=== PATIENT | female | born 1995 | race African-American/Black ===

== ENCOUNTER 2017-08-09 13:57 | Inpatient (IN) | payer MEDICAID ==
[~2017-08-09] VITALS: Ht 165.1 cm; Wt 70.0 kg
[2017-08-09] VITALS (105 sets, daily range): BP systolic 110–136; BP diastolic 62–75; PULSE 78–95; RESP 16–18; TEMP 97.9–98.3; O2SAT 99–100
--- NOTE | 2017-08-09 14:51 | PD ---
HPI Chief Complaint vaginal spotting Date Seen: Aug 09, 2017 Time Seen: 14:47 (Buster Ramirez MD, R2) Travel History International Travel<30 Days: No Contact w/Intl Traveler<30Days: No (Buster Ramirez MD, R2) History of Present Illness HPI Ms. Bradshaw is a 22 y/o -[place] female at 30/6 weeks who presents to the ED for vaginal spotting. She reports that today she had pink tinge after wiping after urinating. Denies any bright red blood. No gush of fluids. Endorses occasional Upton-tenorio contractions. Good movement. 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 States she has moved permanently here and needs to get set up with a new provider. Denies any problems with this . States she had an ultrasound performed early on in that was normal per pt. No problems with her previous . Also complaining of abdominal pain off and on for the last few weeks. The pain is mostly in her bilateral groin areas. Did have sexual intercourse in the last 24 hours. Otherwise, denies any other symptoms. No headache, changes in vision, dysuria, chest pain, SOB, leg pain, leg edema. Weeks Gestation: 30 Para: 1 : 2 (Buster Ramirez MD, R2) History Past Medical History Medical History: Denies Significant Hx (Buster Ramirez MD, R2) Obstetric History Obstetric History 1st : at term (Buster Ramirez MD, R2) Past Surgical History Surgical History: No Previous Surgery (Buster Ramirez MD, R2) Family History Family History: Negative (Buster Ramirez MD, R2) Social History Alcohol Use: No Tobacco Use: No Substance Abuse: No (Buster Ramirez MD, R2) Allergies-Medications (Allergen,Severity, Reaction): Coded Allergies: No Known Allergies (Unverified , 08/09/17) Home Meds Reported Medications Multivit-Min W/Fe-FA ( Vitamins 0.8 mg) 1 Tab Tab 08/09/17 Review of Systems General / Constitutional: Weight Gain, No: Fever, Weight Loss, Chills Eyes: No: Diploplia, Blurred Vision HENT: No: Headaches, Vertigo Cardiovascular: No: Irregular Rhythm, Chest Pain or Discomfort, Palpitations Respiratory: No: Cough, Short of Breath Gastrointestinal: No: Nausea, Vomiting, Diarrhea Genitourinary: Pelvic Pain, Vaginal Bleeding, No: Urgency, Frequency, Dysuria, Discharge Musculoskeletal: No: Limited ROM, Weakness Skin: No Rash, No Itching, No Dryness, No Lumps Neurologic: No: Weakness, Dizziness, Syncope Psychiatric: No: Anxiety, Depression, Suicidal Ideations Endocrine: No: Heat Intolerance, Cold Intolerance (Buster Ramirez MD, R2) Physical Exam Narrative GENERAL: Well-nourished, well-developed patient. SKIN: Warm and dry. HEAD: Normocephalic and atraumatic. EYES: No scleral icterus. No injection or drainage. ENT: No nasal drainage noted. Mucous membranes pink. Airway patent. NECK: Supple, trachea midline. No JVD. CARDIOVASCULAR: Regular rate and rhythm without murmurs, gallops, or rubs. RESPIRATORY: Breath sounds equal bilaterally. No accessory muscle use. ABDOMEN/GI: Abdomen soft, non-tender, bowel sounds present, no rebound, no guarding Gravid to 30 weeks size GENITOURINARY: External Genitalia: intact and normal in appearance Cervix: posterior Dilatation: 2 Effacement: 50 Station: -3 Presentation: unsure Membranes: intact Uterine Contractions: q3-5 minutes FHT's: Category: 1 Baseline: 140 Reactive: yes Variability: moderate Decels: occasional variable EXTREMITIES: No cyanosis or edema. BACK: Nontender without obvious deformity. No CVA tenderness. NEUROLOGICAL: Awake and alert. Motor and sensory grossly within normal limits. Five out of 5 muscle strength in all muscle groups. Normal speech. (Buster Ramirez MD, R2) Data Data Vital Signs Reviewed: Yes (Buster Ramirez MD, R2) [facility] Medical Record Reviewed: Yes Interpretation(s) 22 y/o at 30? weeks gestation presents for vaginal spotting. Category 1 FHT with contractions every 3-5 minutes Speculum exam: no shara blood. No signs of cervicitis Cervical exam: /-3. Amniotic membrane appreciated, no presenting part -Admit to inpatient for workup -1L LR bolus -Start steroids for lung maturity -Start IV Mg for neuroprotection -Ultrasound to evaluate fetus and cervical length -UA, UDS -CBC, CMP, type and screen -GC/CH, rapid GBS -Obtain records (Buster Ramirez MD, R2) Attending Attestation 30 weeks No records at this time, requested from [facility] Intermittent abdominal pain for one week and spotting after intercourse today. SSE with no active bleeding noted. SVE with 2cm dilation, stretchy and no presenting part palpated Irregular UC. Admit for PTL US pending Magnesium sulfate for neuroprotection B-Methasone course initiated UTI on UA, will give Ancef Cervical cultures, GBS pending (Cyndie Price MD) Buster Ramirez MD, R2 Aug 09, 2017 14:51 Cyndie Price MD Aug 09, 2017 20:14
[2017-08-09] MEDS ORDERED: MAGNESIUM SULFATE 40 GM PREMIX 1,000 ML IV SCH (14:57)
[2017-08-09] MEDS ORDERED: BETAMETHASONE SOD PHOS/ACETATE SUSP 30 MG/5 ML VIAL IM SCH (15:00)
[2017-08-09] MEDS ORDERED: ZOLPIDEM TARTRATE 5 MG TAB PO PRN (15:00)
[2017-08-09] MEDS ORDERED: ALUMINUM/MAGNESIUM/SIMETH 30 ML CUP PO PRN (15:00)
[2017-08-09] MEDS ORDERED: SODIUM CHLORIDE 0.9% FLUSH 10 ML FLUSH IV FLUSH PRN (15:00)
[2017-08-09] MEDS ORDERED: MAGNESIUM SULFATE 4 GM PREMIX 100 ML IV ONE (15:00)
[2017-08-09] MEDS ORDERED: LACTATED RINGER'S 1000 ML INJ 1,000 ML IV ONE (15:00)
[2017-08-09] MEDS ORDERED: ACETAMINOPHEN 325 MG TAB PO PRN (15:00)
[2017-08-09] MEDS ORDERED: PREN1TAB63 (15:30)
[2017-08-09] MEDS: BETAMETHASONE SOD PHOS/ACETATE SUSP 30 MG/5 ML VIAL IM SCH (15:43)
[2017-08-09] MEDS ORDERED: ONDANSETRON HCL 4 MG/2 ML VIAL IV PUSH ONE (16:00)
[2017-08-09] MEDS ORDERED: LIDOCAINE 2% JELLY 30 ML TUBE ONE (16:10)
[2017-08-09] MEDS: SODIUM CHLORIDE 0.9% FLUSH 10 ML FLUSH IV FLUSH SCH (16:12)
[2017-08-09] MEDS ORDERED: LIDOCAINE 2% JELLY 30 ML TUBE TOPICAL ONE (16:15)
--- NOTE | 2017-08-09 16:48 | HHI.HP ---
History & Physical H&P HPI Chief Complaint vaginal spotting Date Seen: Aug 09, 2017 Time Seen: 14:47 Travel History International Travel<30 Days: No Contact w/Intl Traveler<30Days: No History of Present Illness HPI Ms. Bradshaw is a 22 y/o -[place] female at 30/6 weeks who presents to the ED for vaginal spotting. She reports that today she had pink tinge after wiping after urinating. Denies any bright red blood. No gush of fluids. Endorses occasional Kendall-tenorio contractions. Good movement. Pt just moved from another [facility] and was seeing a shoe laster there. States she has moved permanently here and needs to get set up with a new provider. Denies any problems with this . States she had an ultrasound performed early on in that was normal per pt. No problems with her previous . Also complaining of abdominal pain off and on for the last few weeks. The pain is mostly in her bilateral groin areas. Did have sexual intercourse in the last 24 hours. Otherwise, denies any other symptoms. No headache, changes in vision, dysuria, chest pain, SOB, leg pain, leg edema. Weeks Gestation: 30 Para: 1 : 2 History (Limited) History Past Medical History Medical History: Denies Significant Hx Obstetric History Obstetric History 1st : at term Past Surgical History Surgical History: No Previous Surgery Family History Family History: Negative Social History Alcohol Use: No Tobacco Use: No Substance Abuse: No Allergies-Medications Allergies-Medications (Allergen,Severity, Reaction): Coded Allergies: No Known Allergies (Unverified , 08/09/17) Home Meds Reported Medications Multivit-Min W/Fe-FA ( Vitamins 0.8 mg) 1 Tab Tab 08/09/17 ROS Review of Systems General / Constitutional: Weight Gain, No: Fever, Weight Loss, Chills Eyes: No: Diploplia, Blurred Vision HENT: No: Headaches, Vertigo Cardiovascular: No: Irregular Rhythm, Chest Pain or Discomfort, Palpitations Respiratory: No: Cough, Short of Breath Gastrointestinal: No: Nausea, Vomiting, Diarrhea Genitourinary: Pelvic Pain, Vaginal Bleeding, No: Urgency, Frequency, Dysuria, Discharge Musculoskeletal: No: Limited ROM, Weakness Skin: No Rash, No Itching, No Dryness, No Lumps Neurologic: No: Weakness, Dizziness, Syncope Psychiatric: No: Anxiety, Depression, Suicidal Ideations Endocrine: No: Heat Intolerance, Cold Intolerance Physical Exam Physical Exam Narrative GENERAL: Well-nourished, well-developed patient. SKIN: Warm and dry. HEAD: Normocephalic and atraumatic. EYES: No scleral icterus. No injection or drainage. ENT: No nasal drainage noted. Mucous membranes pink. Airway patent. NECK: Supple, trachea midline. No JVD. CARDIOVASCULAR: Regular rate and rhythm without murmurs, gallops, or rubs. RESPIRATORY: Breath sounds equal bilaterally. No accessory muscle use. ABDOMEN/GI: Abdomen soft, non-tender, bowel sounds present, no rebound, no guarding Gravid to 30 weeks size GENITOURINARY: External Genitalia: intact and normal in appearance Cervix: posterior Dilatation: 2 Effacement: 50 Station: -3 Presentation: unsure Membranes: intact Uterine Contractions: q3-5 minutes FHT's: Category: 1 Baseline: 140 Reactive: yes Variability: moderate Decels: occasional variable EXTREMITIES: No cyanosis or edema. BACK: Nontender without obvious deformity. No CVA tenderness. NEUROLOGICAL: Awake and alert. Motor and sensory grossly within normal limits. Five out of 5 muscle strength in all muscle groups. Normal speech. Data Data Data Vital Signs Reviewed: Yes MDM MDM Medical Record Reviewed: Yes Interpretation(s) 22 y/o at 30? weeks gestation presents for vaginal spotting. Category 1 FHT with contractions every 3-5 minutes Speculum exam: no shara blood. No signs of cervicitis Cervical exam: 2/50/-3. Amniotic membrane appreciated, no presenting part -Admit to inpatient for workup -1L LR bolus -Start steroids for lung maturity -Start IV Mg for neuroprotection -Ultrasound to evaluate fetus and cervical length -UA, UDS -CBC, CMP, type and screen -GC/CH, rapid GBS -Obtain records (Buster Ramirez MD, R2) H&P Attending Attestation 30 weeks No records at this time, requested from shoe laster clinic Intermittent abdominal pain for one week and spotting after intercourse today. SSE with no active bleeding noted. SVE with 2cm dilation, stretchy and no presenting part palpated Irregular UC. Admit for PTL US resulted - see report Magnesium sulfate for neuroprotection B-Methasone course initiated UTI on UA, will give Ancef Cervical cultures, GBS pending (Cyndie Price MD) (Cyndie Price MD) Buster Ramirez MD, R2 Aug 09, 2017 16:48 Cyndie Price MD Aug 09, 2017 20:14
[2017-08-09 17:19] LABS: HEMATOCRIT 32.7 % (35.0-46.0); MEAN CELL VOLUME 86.7 FL (80.0-100.0); MEAN CORPUSCULAR HEMOGLOBIN 28.2 PG (27.0-34.0); MEAN CORPUSCULAR HGB CONC 32.5 % (32.0-36.0); PLATELET COUNT 149 TH/MM3 (150-450); RED BLOOD COUNT 3.77 MIL/MM3 (4.00-5.30); RED CELL DISTRIBUTION WIDTH 12.7 % (11.6-17.2); REVIEW FLAG FINAL; WHITE BLOOD COUNT 7.1 TH/MM3 (4.0-11.0)
[2017-08-09 17:35] LABS: BLOOD, URINE MOD (NEG); COMMENT (UR) CATH-CULTURE IND; CULTURE IF INDICATED CATH CULTURE IND; GLUCOSE,URINE NEG (NEG); KETONE, URINE NEG (NEG); MUCUS URINE FEW /lpf (OCC); NITRITE,URINE NEG (NEG); SQUAMOUS EPITHELIAL CELL URINE 1 /hpf (0-5); URINE COLOR YELLOW (YELLW/STRAW)
[2017-08-09 17:43] LABS: ANION GAP 7 MEQ/L (5-15); AST (GOT) 17 U/L (15-37); BICARBONATE 28.5 MEQ/L (21.0-32.0); BLOOD UREA NITROGEN 4 MG/DL (7-18); CHLORIDE 102 MEQ/L (98-107); GLOMERULAR FILTRATION RATE 179 ML/MIN (>89); POTASSIUM 3.9 MEQ/L (3.5-5.1); SODIUM (NA) 137 MEQ/L (136-145)
[2017-08-09 17:47] LABS: ALKALINE PHOSPHATASE 114 U/L (45-117); ALT (GPT) 16 U/L (10-53); TOTAL BILIRUBIN ADULT 0.2 MG/DL (0.2-1.0)
[2017-08-09] MEDS: LACTATED RINGER'S 1000 ML INJ 1,000 ML IV SCH (18:21)
[2017-08-09] MEDS: ceFAZolin INJ 500 MG in SODIUM CHLORIDE 0.9% INJ 100 ML IV SCH (18:42)
[2017-08-09 20:31] LABS: CHLAMYDIA PCR NOT DETECTED (NOT DETECT); NEISSERIA PCR NOT DETECTED (NOT DETECT)
[2017-08-10] VITALS (186 sets, daily range): BP systolic 104–127; BP diastolic 53–75; PULSE 71–97; RESP 8–18; TEMP 97.7–98.2; O2SAT 97–100
[2017-08-10] MEDS: ceFAZolin INJ 500 MG in SODIUM CHLORIDE 0.9% INJ 100 ML IV SCH ×2 (01:50→10:08)
[2017-08-10] MEDS: LACTATED RINGER'S 1000 ML INJ 1,000 ML IV SCH (01:50)
[2017-08-10] MEDS: SODIUM CHLORIDE 0.9% FLUSH 10 ML FLUSH IV FLUSH SCH (07:40)
[2017-08-10] MEDS ORDERED: MULTIVIT/MIN/PREN/FOL AC/IRON PRENATAL TAB PO SCH (09:00)
[2017-08-10] MEDS ORDERED: DOCUSATE SODIUM 100 MG CAP PO SCH (09:00)
[2017-08-10] MEDS: BETAMETHASONE SOD PHOS/ACETATE SUSP 30 MG/5 ML VIAL IM SCH (16:10)
--- NOTE | 2017-08-10 17:18 | PD.LABORPN ---
Subjective Subjective Patient is doing well today. Has no complaints. Endorses movement. Denies contractions, leakage of fluid, and bleeding. Objective Vital Signs Vital Signs Date Time Temp Pulse Resp B/P (MAP) Pulse Ox O2 Delivery O2 Flow Rate FiO2 08/10/17 16:00 92 127/70 (89) 08/10/17 15:00 90 120/68 (85) 08/10/17 14:45 85 99 08/10/17 14:40 80 100 08/10/17 14:35 95 98 08/10/17 14:30 95 99 08/10/17 14:25 89 99 08/10/17 14:20 80 98 08/10/17 14:15 80 99 08/10/17 14:10 82 100 08/10/17 14:05 82 100 08/10/17 14:00 82 08/10/17 14:00 82 116/65 (82) 100 08/10/17 13:55 84 100 08/10/17 13:50 83 100 08/10/17 13:47 98.2 08/10/17 13:45 84 99 08/10/17 13:40 81 100 08/10/17 13:35 94 100 08/10/17 13:30 84 100 08/10/17 13:25 97 100 08/10/17 13:20 85 100 08/10/17 13:15 88 100 08/10/17 13:10 91 100 08/10/17 13:05 93 100 08/10/17 13:00 89 08/10/17 13:00 89 120/70 (87) 100 08/10/17 12:55 89 100 08/10/17 12:50 90 100 08/10/17 12:45 89 100 08/10/17 12:40 86 100 08/10/17 12:35 84 100 08/10/17 12:30 94 99 08/10/17 12:25 94 100 08/10/17 12:20 91 99 08/10/17 12:15 91 97 08/10/17 12:10 86 98 08/10/17 12:05 82 99 08/10/17 12:00 84 08/10/17 12:00 8 08/10/17 12:00 18 08/10/17 12:00 86 119/75 (90) 100 08/10/17 11:55 87 99 08/10/17 11:50 82 100 08/10/17 11:45 85 99 08/10/17 11:40 86 100 08/10/17 11:35 85 98 08/10/17 11:30 85 100 08/10/17 11:25 86 100 08/10/17 11:20 87 100 08/10/17 11:15 87 100 08/10/17 11:10 89 100 08/10/17 11:05 86 98 08/10/17 11:00 18 08/10/17 11:00 90 08/10/17 11:00 90 127/75 (92) 98 08/10/17 10:55 91 98 08/10/17 10:50 93 98 08/10/17 10:45 84 100 08/10/17 10:40 85 100 08/10/17 10:35 86 100 08/10/17 10:30 84 100 08/10/17 10:25 82 100 08/10/17 10:20 87 100 08/10/17 10:15 82 100 08/10/17 10:10 94 100 08/10/17 10:05 87 100 08/10/17 10:00 17 08/10/17 10:00 87 08/10/17 10:00 89 122/70 (87) 100 08/10/17 09:55 89 100 08/10/17 09:50 88 100 08/10/17 09:45 96 100 08/10/17 09:40 96 100 08/10/17 09:35 92 100 08/10/17 09:30 95 100 08/10/17 09:25 85 100 08/10/17 09:20 94 100 08/10/17 09:15 88 100 08/10/17 09:10 89 100 Objective HEENT: normocephalic, EOM intact Cardio: Regular rate and rhythm Lungs: normal respiratory effort Abdomen: non-distended Weeks Gestation: 30 Gest Age Assessed Date: Aug 10, 2017 Gest Age Assessed Time: 14:47 Pt started active labor?: No Medical induction of labor?: No Artificial rupture of membrane: No Assessment/Plan Problem List: (1) contractions ICD Codes: O47.9 - False labor, unspecified Assessment and Plan @36 weeks admitted for contractions. Has resolved // labor - received betamethasone x2 - MgSO4 for 24 hours for neuroprotection - No longer su - advise bed rest for a couple days - hydrate -tylenol and heating pads for pain //UTI - Ancef Day 2 - Order Macrobid for [address] Nikko Morales,Stephanie Huynh MD R1 Aug 10, 2017 17:18
[2017-08-10] MEDS ORDERED: MACR100C2 PO (17:29)
--- NOTE | 2017-08-10 17:30 | HHI.DCPOC ---
Discharge Care Plan Diagnosis: (1) contractions Report Symptoms to Your Doctor -Temperature above 100.5 degrees -Redness, of incision or excessive or foul smelling drainage -Unusual pain or calf pain -Increased vaginal bleeding -Painful or difficulty urinating -Feelings of extreme sadness or anxiety after 2 weeks Goals to Promote Your Health * To prevent worsening of your condition and complications * To maintain your health at the optimal level Directions to Meet Your Goals Take your medications as prescribed Follow your dietary instruction Follow activity as directed Ensure plenty of rest for recovery Drink fluids for hydration Keep your appointments as scheduled Take your immunizations and boosters as scheduled If your symptoms worsen call your PCP, if no PCP go to Urgent Care Center or Emergency Room Smoking is Dangerous to Your Health. Avoid second hand smoke Call the 24-hour crisis hotline for domestic abuse at Stephanie Morales MD R1 Aug 10, 2017 17:30
[2017-08-13 07:26] LABS: BATH SALTS (MDPV) UR NEG (NEG); ECSTASY (MDMA) UR NEG (NEG); GABAPENTIN UR NEG (NEG); HEROIN (6-ACETYLMORPHINE) UR NEG (NEG); K2 SPICE UR NEG (NEG); OBMETHADONE UR NEG (NEG); PHENCYCLIDINE URINE NEG (NEG)
[2017-08-13 07:27] LABS: HYDROMORPHONE U NEG (NEG)
== END 2017-08-10 17:59 | disposition home or self-care (01) | DRG 778 ==
LOC: HOBED 13:57 → H2EA 15:26
PROVIDERS: ADMIT Obstetrics & Gynecology; ATTEND Obstetrics & Gynecology
DX: O60.03 Preterm labor without delivery, third trimester (principal); O23.43 Unspecified infection of urinary tract in pregnancy, third trimester; Z3A.30 30 weeks gestation of pregnancy
CPT/HCPCS: 76816; 80053; 80307; 81001; 85027; 86850; 86900; 86901; 87086; 87150; 87491; 87591; 99285; G0481; J0690; J0702; J3475; J7120

== ENCOUNTER 2017-08-26 19:45 | Inpatient (IN) | payer MEDICAID ==
[~2017-08-26 19:45] MED LIST: MACR100C2 PO; PREN1TAB63
[2017-08-26] MEDS: LACTATED RINGER'S 1000 ML INJ 1,000 ML IV SCH (20:31)
[2017-08-26] MEDS ORDERED: LACTATED RINGER'S 1000 ML INJ 1,000 ML IV PRN (20:31)
[2017-08-26] MEDS ORDERED: AMPICILLIN INJ 1,000 MG in SODIUM CHLORIDE 0.9% INJ 100 ML IV SCH (20:45)
[2017-08-26] MEDS ORDERED: CITRIC ACID-SODIUM CITRATE LIQ 30 ML UDC PO SCH (20:45)
[2017-08-26] MEDS ORDERED: OXYTOCIN 30 UNITS-500ML PREMIX 500 ML IV ONE (20:45)
[2017-08-26] MEDS ORDERED: ONDANSETRON HCL 4 MG/2 ML VIAL IV PUSH PRN (20:45)
[2017-08-26] MEDS ORDERED: MINERAL OIL 10 ML VIAL TOPICAL PRN (20:45)
[2017-08-26] MEDS ORDERED: LIDOCAINE HCL 1% 50 ML VIAL I-DERMAL PRN (20:45)
[2017-08-26] MEDS ORDERED: LIDOCAINE HCL 1% 50 ML VIAL INFIL PRN (20:45)
[2017-08-26] MEDS ORDERED: SODIUM CHLORID 0.9% 500 ML INJ 500 ML IV PRN (20:45)
[2017-08-26] MEDS ORDERED: SODIUM CHLOR 0.9% 1000 ML INJ 1,000 ML IV PRN (20:51)
--- NOTE | 2017-08-26 21:03 | HHI.HP ---
History & Physical H&P HPI Chief Complaint leaking fluid Date Seen: Aug 26, 2017 Time Seen: 20:45 Travel History International Travel<30 Days: No Contact w/Intl Traveler<30Days: No Known Affected Area: No History of Present Illness HPI Pt is a 22 y/o with IUP at 33.2 wks who presents for evaluation of leakage of fluid. Pt states she first noted some leakage yesterday morning around 10 am. Noted increased leaking of clear fluid today. reports + pelvic pressure. denies regular contractions. denies vb. +FM PNC in another [facility] until around 30 wks, no PNC since. s/p admission 08/09-08/10 for threatened labor. received BMS and magnesium during that admission. GBS swab obtained during that admission was +. Weeks Gestation: 33 Para: 1 : 2 History (Limited) History Past Medical History Medical History: Denies Significant Hx Obstetric History Obstetric History 01/13/12 FTSVD, denies /delivery complications Past Surgical History Surgical History: No Previous Surgery Family History Family History: Negative Social History Alcohol Use: No Tobacco Use: No Substance Abuse: No Allergies-Medications Allergies-Medications (Allergen,Severity, Reaction): Coded Allergies: No Known Allergies (Unverified , 08/10/17) Home Meds Active Scripts Nitrofurantoin Monohydrate Macrocrystals (Macrobid) 100 Mg Cap, 100 MG PO BID for Infection for 5 Days, #10 CAP 0 Refills Prov:Stephanie Morales MD R1 08/10/17 Reported Medications Multivit-Min W/Fe-FA ( Vitamins 0.8 mg) 1 Tab Tab 08/09/17 ROS Review of Systems General / Constitutional: No: Fever, Weight Gain, Weight Loss, Chills, Other Eyes: No: Diploplia, Blurred Vision, Visual changes, Pain, Photophobia, Other HENT: No: Headaches, Vertigo, Dental Difficulties, Lightheadedness, Other Cardiovascular: No: Irregular Rhythm, Chest Pain or Discomfort, Palpitations, Tachycardia, Syncope, Varicosities, Edema, Cyanosis, Other Respiratory: No: Cough, Short of Breath, Wheezing, Other Gastrointestinal: No: Nausea, Vomiting, Diarrhea, Abdominal Pain, Hematemesis, Hematochezia, Constipation, Changes in Bowel Habits, Indigestion, Loss of Appetite, Other Genitourinary: No: Urgency, Frequency, Dysuria, Nocturia, Hematuria, Decreased Urinary Output, Oliguria, Hesitancy, Dribbling, Incontinence, Pelvic Pain, Dyspareunia, Discharge, Menorrhagia, Vaginal Bleeding, Other Musculoskeletal: No: Limited ROM, Weakness, Cramping, Edema, Pain, Other Skin: No Rash, No Itching, No Dryness, No Lumps, No Change in Pigmentation, No Change in Nails, No Alopecia, No Lesions, No Breast Lumps, No Breast Tenderness , No Breast Swelling, No Other Neurologic: No: Weakness, Dizziness, Syncope, Focal Abnormalities, Coordination Problem, Headache, Slurred Speech, Seizures, Other Psychiatric: No: Anxiety, Depression, Suicidal Ideations, Disorder of Thought, Mood Disorder, Substance Abuse, Homicidal Ideation, Other Endocrine: No: Heat Intolerance, Cold Intolerance, Polydipsia, Polyuria, Other Hematologic/Lymphatic: No Easy Bruising, No Lymph Node Enlargement, No Other Physical Exam Physical Exam 117/68, 18, 102, 98.3 Narrative GENERAL: Well-nourished, well-developed patient. SKIN: Warm and dry. HEAD: Normocephalic and atraumatic. EYES: No scleral icterus. No injection or drainage. ENT: No nasal drainage noted. Mucous membranes pink. Airway patent. NECK: Supple, trachea midline. No JVD. CARDIOVASCULAR: Regular rate and rhythm without murmurs, gallops, or rubs. RESPIRATORY: Breath sounds equal bilaterally. No accessory muscle use. BREASTS: Bilateral exam showed no masses , no retractions, no nipple discharge. ABDOMEN/GI: Abdomen soft, non-tender, bowel sounds present, no rebound, no guarding Gravid, no fundal tenderness GENITOURINARY: External Genitalia: intact and normal in appearance, clear fluid present on perineum BUS glands: [wnl] Cervix: [mid] Dilatation: 3 Effacement: 70 Station: -2 Presentation: ceph Membranes: ruptured, clear fluid leaking, amnisure + Uterine Contractions: none FHT's: Category: 1 Baseline: 130 Reactive: yes Variability: mod Decels: no EXTREMITIES: No cyanosis or edema. BACK: Nontender without obvious deformity. No CVA tenderness. NEUROLOGICAL: Awake and alert. Motor and sensory grossly within normal limits. Five out of 5 muscle strength in all muscle groups. Normal speech. Data Data Data Vital Signs Reviewed: Yes Orders Orders Admit To Inpatient (08/26/17 ) Code Status (08/26/17 20:31) Vital Signs (Adult) .Per protocol (08/26/17 20:31) Heart (08/26/17 20:31) Urinary Catheter Management .ONCE (08/26/17 20:31) Diet Npo (08/27/17 Breakfast) Lactated Ringer's 1000 Ml Inj (Lr 1000 M (08/26/17 20:31) Lactated Ringer's 1000 Ml Inj (Lr 1000 M (08/26/17 20:31) Sodium Chlorid 0.9% 500 Ml Inj (Ns 500 M (08/26/17 20:45) Sodium Chlor 0.9% 1000 Ml Inj (Ns 1000 M (08/26/17 20:51) Lidocaine 1% Inj (50 Ml) (Xylocaine 1% I (08/26/17 20:45) Citric Acid-Sodium Citrate Liq (Bicitra (08/26/17 20:45) Ondansetron Inj (Zofran Inj) (08/26/17 20:45) Complete Blood Count With Diff (08/26/17 20:31) Hold Clot (08/26/17 20:31) Abo/Rh Blood Type (08/26/17 20:31) Urinalysis - C+S If Indicated (08/26/17 20:31) Rapid Plasma Regin (Rpr) W Ttr (08/26/17 20:31) Hepatitis Profile (08/26/17 20:31) No Care Spec Serology (08/26/17 20:31) Resp Oxygen Non Rebreathe Mask (08/26/17 ) Oxytocin 30 Units-500ml Premix (Pitocin (08/26/17 20:45) Lidocaine 1% Inj (50 Ml) (Xylocaine 1% I (08/26/17 20:45) Light Mineral Oil (Muri-Lube Oil) (08/26/17 20:45) Us Ob Limited (08/27/17 07:00) Ampicillin Inj (Ampicillin Inj) (08/26/17 20:45) Erythromycin Ec (Emycin Ec) (08/27/17 00:00) Inpatient Certification (08/26/17 ) Ob (2e) Additional Admit Info (08/26/17 20:46) Group B Strep: Positive MDM MDM Medical Record Reviewed: Yes Narrative Course / MDM 22 y/o with IUP at 33.2 wks, PPROM D#2 --admit and monitor for s/sx labor, chorio --GBS+--ampicillin and erythromycin ordered --u/s in am --check PNL Plan PPROM D#2 admit to [facility] Diagnosis Diagnosis: Primary Impression: premature rupture of membranes (PPROM) with unknown onset of labor Additional Impression: 33 weeks gestation of Thania Newman MD Aug 26, 2017 21:03 Thania Newman MD Aug 26, 2017 21:03
[2017-08-26 21:11] LABS: BLOOD, URINE NEG (NEG); COMMENT (UR) CULT NOT INDICATED; CULTURE IF INDICATED CULT NOT INDICATED; GLUCOSE,URINE NEG (NEG); KETONE, URINE TRACE mg/dL (NEG); MUCUS URINE FEW /lpf (OCC); NITRITE,URINE NEG (NEG); SQUAMOUS EPITHELIAL CELL URINE <1 /hpf (0-5); URINE COLOR YELLOW (YELLW/STRAW)
[2017-08-26 21:44] VITALS: BP 113/68; PULSE 99
[2017-08-26 21:46] LABS: AUTOMATED NEUTROPHIL # 6.2 TH/MM3 (1.8-7.7); BASOPHIL % 0.3 % (0.0-2.0); EOSINOPHIL # 0.1 TH/MM3 (0-0.4); HEMATOCRIT 31.6 % (35.0-46.0); HEMO FLAGS DIFF FINAL; LYMPHOCYTE # 1.2 TH/MM3 (1.0-4.8); MEAN CELL VOLUME 86.9 FL (80.0-100.0); MEAN CORPUSCULAR HEMOGLOBIN 28.7 PG (27.0-34.0); MEAN CORPUSCULAR HGB CONC 33.1 % (32.0-36.0); MONO % 10.9 % (0.0-8.0); NEUT % 73.8 % (16.0-70.0); PLATELET COUNT 203 TH/MM3 (150-450); RED BLOOD COUNT 3.64 MIL/MM3 (4.00-5.30); RED CELL DISTRIBUTION WIDTH 13.1 % (11.6-17.2); WHITE BLOOD COUNT 8.4 TH/MM3 (4.0-11.0)
[2017-08-27] VITALS (20 sets, daily range): BP systolic 108–145; BP diastolic 51–129; PULSE 82–113; RESP 16–18; TEMP 97.9–98.7; O2SAT 98
[2017-08-27] MEDS ORDERED: AMPICILLIN INJ 1,000 MG in SODIUM CHLORIDE 0.9% INJ 100 ML IV SCH ×2 (04:00→10:00)
[2017-08-27] MEDS: ERYTHROMYCIN EC 500 MG TABEC PO SCH ×2 (06:00)
[2017-08-27] MEDS: LACTATED RINGER'S 1000 ML INJ 1,000 ML IV SCH (09:23)
[2017-08-27] MEDS ORDERED: OXYTOCIN 30 UNITS-500ML PREMIX 500 ML ONE (09:54)
[2017-08-27] MEDS ORDERED: OXYTOCIN 30 UNITS-500ML PREMIX 500 ML IV ONE (10:00)
--- NOTE | 2017-08-27 10:02 | PD.LABORPN ---
Subjective Subjective Patient declined epidural. VSS. Objective Vital Signs Vital Signs Date Time Temp Pulse Resp B/P (MAP) Pulse Ox O2 Delivery O2 Flow Rate FiO2 08/27/17 09:15 98.7 18 08/27/17 09:00 84 127/80 (96) 08/27/17 09:00 18 08/27/17 08:53 82 129/74 (92) 08/27/17 08:52 145/129 (134) 08/27/17 08:00 18 08/27/17 07:50 98.1 08/27/17 05:00 97.9 08/27/17 05:00 18 08/27/17 04:03 87 120/78 (92) Objective Pelvic Exam: Cervix: mid Dilatation: 8-9 Effacement: 100% Station: +1 Presentation: vertex Membranes: ruptured Uterine Contractions: every 3-4 min FHT's: Category: 1 Baseline: 120s Reactive: yes Variability: moderate Decels: no Weeks Gestation: 33 Gest Age Assessed Date: Aug 27, 2017 Gest Age Assessed Time: 09:52 Pt started active labor?: Yes Active labor start date: Aug 27, 2017 Active labor start time: 07:00 Medical induction of labor?: No Artificial rupture of membrane: No Assessment/Plan Assessment and Plan 22 y/o with IUP at 33.2 wks, PPROM D#2 in active labor 1.IUP category 1, baseline 120s continue to monitor 2.GBS+--ampicillin and erythromycin 3. Labor Declined epidural Making progress with cervical change Mary Ann Ochoa MD R1 Aug 27, 2017 10:02
[2017-08-27] MEDS ORDERED: SODIUM CHLORIDE 0.9% FLUSH 10 ML FLUSH IV FLUSH PRN (11:15)
[2017-08-27] MEDS ORDERED: WITCH HAZEL 50%/GLYCERIN 12.5% 40 PAD JAR TOPICAL PRN (11:15)
[2017-08-27] MEDS ORDERED: OXYTOCIN 30 UNITS-500ML PREMIX 500 ML IV SCH (11:15)
[2017-08-27] MEDS ORDERED: ALUMINUM/MAGNESIUM/SIMETH 30 ML CUP PO PRN (11:15)
[2017-08-27] MEDS ORDERED: ZOLPIDEM TARTRATE 5 MG TAB PO PRN (11:15)
[2017-08-27] MEDS ORDERED: SODIUM CHLORIDE 0.9% FLUSH 10 ML FLUSH IV FLUSH SCH (11:15)
[2017-08-27] MEDS ORDERED: ONDANSETRON ODT 4 MG TAB PO PRN (11:15)
[2017-08-27] MEDS ORDERED: BENZOCAINE 20% TOPICAL SPRAY 60 ML CAN TOPICAL PRN (11:15)
--- NOTE | 2017-08-27 11:16 | PD.OB.DELI ---
Weeks gestation: 33 Gest age assessed date: Aug 27, 2017 Gest age assessed time: 09:52 Pt started active labor?: Yes Active labor start date: Aug 27, 2017 Active labor start time: 07:00 Medical induction of labor?: No Artificial rupture of membrane: No Anesthesia: None Episiotomy: None Vaginal Delivery: Normal, Spontaneous Presentation: Occiput anterior Nuchal Cord: None Delayed cord clamping (45 sec): Yes (delayed for 1 min) : Male Delivery date: Aug 27, 2017 Delivery time: 11:02 One Minute : 9 Five Minute : 9 Weight: 2000g Placenta: Spontaneous delivery Laceration: Vaginal laceration (no repair required, hemostasis achieved ) Estimated blood loss: 100 cc Additional Information 22 yr old PPROM delivered at 33/3, w/ vaginal lacerations w/ no repair. GBS pos s/p amp + erythromycin. (Mary Ann Ochoa MD R1) Additional Information I attended this delivery. (Juanito Castellanos MD) Mary Ann Ochoa MD R1 Aug 27, 2017 11:16 Juanito Castellanos MD Aug 27, 2017 12:21
[2017-08-27] MEDS ORDERED: oxyCODONE/ACETAMINOPHEN 5 MG/325 MG TAB PO PRN ×2 (11:30)
[2017-08-27] MEDS: IBUPROFEN 600 MG TAB PO PRN (11:49)
[2017-08-27] MEDS ORDERED: MEASLES, MUMPS, RUBELLA VACCINE 0.5 ML VIAL SQ ONE (16:00)
[2017-08-27] MEDS ORDERED: DIPHTH/TETANUS/ACEL PERTUSSIS (BOOSTER) 0.5 ML VIAL/PFS IM ONE (16:00)
[2017-08-28 08:15] VITALS: BP 99/77; PULSE 80; RESP 18; TEMP 97.7
--- NOTE | 2017-08-28 09:09 | HHI.OB ---
Subjective Remarks 22 year old female s/p at 33/3 wks gestation, PPD 1. AFVSS. Patient reports she is feeling well. Bleeding is decreasing and pain is well- controlled. She is breast and formula feeding and bonding well with baby. Ambulating without difficulties. She is tolerating a diet without nausea or vomiting. She has not had a bowel movement. She has passed gas. Denies chest pain, dysuria, shortness of breath, or calf pain. (Kirby Hernandez MD R2) Objective Vitals/I&O Vital Signs Date Time Temp Pulse Resp B/P (MAP) Pulse Ox O2 Delivery O2 Flow Rate FiO2 08/28/17 08:15 97.7 80 18 99/77 (84) 08/27/17 20:50 88 108/62 (77) 08/27/17 12:15 90 08/27/17 12:15 112/63 (79) 08/27/17 12:15 18 98 08/27/17 12:00 82 127/74 (91) 08/27/17 11:55 16 08/27/17 11:45 85 127/63 (84) 08/27/17 11:40 16 08/27/17 11:33 138/86 (103) 08/27/17 11:25 16 08/27/17 11:15 113 135/75 (95) 08/27/17 11:10 18 08/27/17 11:01 95 121/51 (74) 08/27/17 10:30 89 132/78 (96) 08/27/17 09:15 98.7 18 Objective Remarks GENERAL: Well-nourished, well-developed patient. CARDIOVASCULAR: Regular rate and rhythm without murmurs, gallops, or rubs. RESPIRATORY: Breath sounds equal bilaterally. No accessory muscle use. ABDOMEN/GI: Abdomen soft, non-tender. Fundus: Firm, non-tender at umbilicus. GENITOURINARY: Light to moderate bleeding. EXTREMITIES: No cyanosis or edema, non-tender, without signs of DVT. Medications and IVs Current Medications Medications (Trade) Dose Ordered Sig/Melecio Route Start Time Stop Time Status Last Admin (NS Flush) 2 ml BID IV FLUSH 08/27/17 11:15 (NS Flush) 2 ml UNSCH PRN IV FLUSH 08/27/17 11:15 (Tylenol) 650 mg Q4H PRN PO 08/27/17 11:15 (Motrin) 600 mg Q6H PRN PO 08/27/17 11:15 08/27/17 11:49 (Americaine 20% Top Spr) 1 spray Q4H PRN TOPICAL 08/27/17 11:15 08/27/17 13:54 (Tucks Pads) 1 applic QID PRN TOPICAL 08/27/17 11:15 08/27/17 13:54 (Laly-Colace) 2 tab Q12H PRN PO 08/27/17 11:15 (Ambien) 5 mg HS PRN PO 08/27/17 11:15 (Mag-Al Plus Susp Liq) 15 ml Q8H PRN PO 08/27/17 11:15 (Zofran Odt) 4 mg Q6H PRN PO 08/27/17 11:15 (Percocet 5-325 Mg) 1 tab Q4H PRN PO 08/27/17 11:30 (Percocet 5-325 Mg) 2 tab Q4H PRN PO 08/27/17 11:30 (Kirby Hernandez MD R2) Assessment/Plan Assessment and Plan 22 yo female s/p , PPD 1 - AFVSS - Continue routine care - Motrin PRN pain - Encourage OOB - Pelvic rest x 6 wks - Contraception: Undecided - Anticipate D/C tomorrow (Kirby Hernandez MD R2) Attending Attestation Patient seen and evaluated with resident under direct supervision, agree with assessment and plan. (Juanito Castellanos MD) Kirby Hernandez MD R2 Aug 28, 2017 09:09 Juanito Castellanos MD Aug 30, 2017 06:55
[2017-08-28] MEDS: IBUPROFEN 600 MG TAB PO PRN ×2 (14:09→20:06)
[2017-08-28] MEDS: ACETAMINOPHEN 325 MG TAB PO PRN ×2 (14:09→20:06)
[2017-08-28] MEDS: DOCUSATE SODIUM 50 MG/SENNA 8.6 MG TAB PO PRN (14:09)
[2017-08-28 20:00] VITALS: RESP 17; TEMP 97.8; O2SAT 100
[2017-08-29] MEDS: DOCUSATE SODIUM 50 MG/SENNA 8.6 MG TAB PO PRN (02:31)
[2017-08-29] MEDS: IBUPROFEN 600 MG TAB PO PRN ×2 (02:31→09:30)
[2017-08-29] MEDS: ACETAMINOPHEN 325 MG TAB PO PRN ×2 (02:31→09:30)
[2017-08-29 08:02] VITALS: BP 113/69; PULSE 68; RESP 18; TEMP 97.6
[2017-08-29] MEDS ORDERED: SENN1TAB PO (08:28)
[2017-08-29] MEDS ORDERED: IBUP-232 PO (08:28)
--- NOTE | 2017-08-29 08:29 | HHI.DCPOC ---
Discharge Care Plan Diagnosis: (1) premature rupture of membranes (PPROM) with unknownonset of labor (2) care following vaginal delivery Report Symptoms to Your Doctor -Temperature above 100.5 degrees -Redness, of incision or excessive or foul smelling drainage -Unusual pain or calf pain -Increased vaginal bleeding -Painful or difficulty urinating -Feelings of extreme sadness or anxiety after 2 weeks Goals to Promote Your Health * To prevent worsening of your condition and complications * To maintain your health at the optimal level Directions to Meet Your Goals Take your medications as prescribed Follow your dietary instruction Follow activity as directed Ensure plenty of rest for recovery Drink fluids for hydration Keep your appointments as scheduled Take your immunizations and boosters as scheduled If your symptoms worsen call your PCP, if no PCP go to Urgent Care Center or Emergency Room Smoking is Dangerous to Your Health. Avoid second hand smoke Call the 24-hour crisis hotline for domestic abuse at Buster Ramirez MD, R2 Aug 29, 2017 08:29
--- NOTE | 2017-08-29 08:29 | HHI.OB ---
Subjective Post Day: 2 Remarks day # 2. AFVSS overnight. Pain minimal, controlled with medications. Decreased lochia. Denies dysuria. No breast tenderness. She is feeding the baby via breast/formula. Appetite good. No nausea or vomiting. Endorses flatus. No bowel movement. Ambulating well. Denies calf pain, shortness of breath, or cough. Otherwise, she is doing well this morning and has no other complaints. Objective Vitals/I&O Vital Signs Date Time Temp Pulse Resp B/P (MAP) Pulse Ox O2 Delivery O2 Flow Rate FiO2 08/29/17 08:02 68 18 113/69 (84) 08/29/17 08:02 97.6 08/28/17 20:00 97.8 17 100 Objective Remarks GENERAL: Well-nourished, well-developed patient. CARDIOVASCULAR: Regular rate and rhythm without murmurs, gallops, or rubs. RESPIRATORY: Breath sounds equal bilaterally. No accessory muscle use. ABDOMEN/GI: Abdomen soft, non-tender. Fundus: Firm, non-tender at umbilicus. GENITOURINARY: Light to moderate bleeding. EXTREMITIES: No cyanosis or edema, non-tender, without signs of DVT. Medications and IVs Current Medications Medications (Trade) Dose Ordered Sig/Melecio Route Start Time Stop Time Status Last Admin (NS Flush) 2 ml BID IV FLUSH 08/27/17 11:15 (NS Flush) 2 ml UNSCH PRN IV FLUSH 08/27/17 11:15 (Tylenol) 650 mg Q4H PRN PO 08/27/17 11:15 08/29/17 02:31 (Motrin) 600 mg Q6H PRN PO 08/27/17 11:15 08/29/17 02:31 (Americaine 20% Top Spr) 1 spray Q4H PRN TOPICAL 08/27/17 11:15 08/27/17 13:54 (Tucks Pads) 1 applic QID PRN TOPICAL 08/27/17 11:15 08/27/17 13:54 (Laly-Colace) 2 tab Q12H PRN PO 08/27/17 11:15 08/29/17 02:31 (Ambien) 5 mg HS PRN PO 08/27/17 11:15 (Mag-Al Plus Susp Liq) 15 ml Q8H PRN PO 08/27/17 11:15 (Zofran Odt) 4 mg Q6H PRN PO 08/27/17 11:15 (Percocet 5-325 Mg) 1 tab Q4H PRN PO 08/27/17 11:30 (Percocet 5-325 Mg) 2 tab Q4H PRN PO 08/27/17 11:30 Assessment/Plan Assessment and Plan 22 yo female s/p , PPD 2 at 33 weeks - AFVSS - Continue routine care - Motrin PRN pain - Encourage OOB - Pelvic rest x 6 wks - Contraception: Undecided - Anticipate D/C today Buster Ramirez MD, R2 Aug 29, 2017 08:29
[2017-08-31 14:09] LABS: BATH SALTS (MDPV) UR NEG (NEG); ECSTASY (MDMA) UR NEG (NEG); GABAPENTIN UR NEG (NEG); HEROIN (6-ACETYLMORPHINE) UR NEG (NEG); HYDROMORPHONE U NEG (NEG); K2 SPICE UR NEG (NEG); OBMETHADONE UR NEG (NEG); PHENCYCLIDINE URINE NEG (NEG)
== END 2017-08-29 17:15 | disposition home or self-care (01) | DRG 775 ==
LOC: HOBED 19:45 → H2EA 20:48 → H2EB 08-27 07:21 → H1EA 08-27 12:10
PROVIDERS: ADMIT Obstetrics & Gynecology; ATTEND Obstetrics & Gynecology
PROC: 10E0XZZ Delivery of Products of Conception, External Approach (ICD-10-PCS; principal; 2017-08-27)
DX: O42.913 Preterm premature rupture of membranes, unspecified as to length of time between rupture and onset of labor, third trimester (principal); O71.4 Obstetric high vaginal laceration alone; Z37.0 Single live birth; O99.824 Streptococcus B carrier state complicating childbirth; Z3A.33 33 weeks gestation of pregnancy
CPT/HCPCS: 59025; 80074; 80307; 81001; 84112; 85025; 86592; 86703; 86900; 86901; 90715; G0481; J0290; J2590; J3010; J7120